=== PATIENT | male | born 1950 | race African-American/Black ===

== ENCOUNTER 2016-06-27 13:00 | Emergency (ER) | payer MEDICAID, MEDICARE ==
[2016-06-27 13:50] LABS: VENOUS BLOOD BASE EXCESS 2.1 mmol/L; VENOUS BLOOD HCO3 26.3 mmol/L (20-32); VENOUS BLOOD PCO2 39.8 mmHg (35-63); VENOUS BLOOD PH 7.44 (7.30-7.42)
[2016-06-27 13:56] LABS: APPEARANCE,URINE CLEAR; BILIRUBIN,URINE NEGATIVE (NEGATIVE); GLUCOSE, URINE NEGATIVE (NEGATIVE); KETONES,URINE NEGATIVE (NEGATIVE); LEUKOCYTE ESTERASE,URINE NEGATIVE (NEGATIVE); NITRITE,URINE NEGATIVE (NEGATIVE); PROTEIN,URINE 30 mg/dL (NEGATIVE); URINE SPECIFIC GRAVITY 1.016; UROBILINOGEN,URINE NEGATIVE mg/dL (<2.0)
[2016-06-27 14:02] LABS: ABSOLUTE LYMPHOCYTES (AUTO) 1.2 10^3/uL (0.5-4.7); ABSOLUTE MONOCYTES (AUTO) 0.5 10^3/uL (0.1-1.4); ABSOLUTE NEUT (AUTO) 2.5 10^3/uL (1.7-8.2); BASOPHILS % (AUTO) 0.5 % (0-2); EOSINOPHILS % (AUTO) 0.8 % (0-6); HEMATOCRIT 48.3 % (37.9-51.0); HEMOGLOBIN 16.5 g/dL (13.5-17.0); HGB HCT DIFFERENCE 1.2; LYMPHOCYTES % (AUTO) 28.2 % (13-45); MEAN CORPUSCULAR HEMOGLOBIN 29.6 pg (27.0-33.4); MEAN CORPUSCULAR HGB CONC 34.1 g/dL (32.0-36.0); MEAN CORPUSCULAR VOLUME 87 fl (80-97); MONOCYTES % (AUTO) 12.2 % (3-13); RED BLOOD COUNT 5.57 10^6/uL (4.35-5.55); RED CELL DISTRIBUTION WIDTH 14.5 % (11.5-14.0); SEGMENTED NEUTROPHILS % (AUTO) 58.3 % (42-78); WHITE BLOOD COUNT 4.3 10^3/uL (4.0-10.5)
[2016-06-27 14:05] LABS: ALANINE AMINOTRANSFERASE 22 U/L (21-72); ALBUMIN 4.4 g/dL (3.5-5.0); ALKALINE PHOSPHATASE 51 U/L (38-126); ANION GAP 13 (5-19); ASPARTATE AMINO TRANSFERASE 20 U/L (17-59); BILIRUBIN,DIRECT 0.3 mg/dL (0.0-0.4); BILIRUBIN,TOTAL 0.9 mg/dL (0.2-1.3); BLOOD UREA NITROGEN 13 mg/dL (7-20); CALCIUM 10.1 mg/dL (8.4-10.2); CARBON DIOXIDE 27 mmol/L (22-30); CHLORIDE 102 mmol/L (98-107); CREATINE KINASE 366 U/L (55-170); CREATININE RESULT 1.59 mg/dL (0.52-1.25); GLUCOSE 101 mg/dL (75-110); LIPASE 90.3 U/L (23-300); MAGNESIUM 1.6 mg/dL (1.6-2.3); POTASSIUM 3.4 mmol/L (3.6-5.0); SODIUM 141.7 mmol/L (137-145); TOTAL PROTEIN 7.6 g/dL (6.3-8.2)
--- NOTE | 2016-06-27 14:06 | ER Document Report ---
ED Respiratory Problem - General Mode of Arrival: Ambulatory Information source: Patient - HPI Patient complains to provider of: Cough, Short of breath Onset: Other - last night Context: Smoker, Other - see notes above Cough: Productive Sputum color: White Associated symptoms: Other - see notes above <JAMES BAKER - Last Filed: 06/27/16 14:00> <ANGEL RUSSELL - Last Filed: 06/27/16 18:05> - General Chief Complaint: Shortness Of Breath Stated Complaint: SHORTNESS OF BREATH Time Seen by Provider: 06/27/16 13:43 Notes: 66 year old male with history of hypertension and arthritis presents to the ED complaining of shortness of breath with exertion that started last night. Patient also complains of a productive cough bringing up white sputum. Patient was on blood pressure medication, but states that he is not taking any medication at this time. Patient [facility] to the [facility]. (JAMES BAKER) This 66-year-old male patient complains of shortness of breath for 2 days with a white productive cough. His pulse ox is oh 100% on room air and he does not appear tachypneic. He does smoke about a pack of cigarettes on a daily basis. His blood pressure is elevated at 199/142, he has not taken his blood pressure medication in quite some time. He does not know the name of the medication he has been on in the past. There is no chest pain. (ANGEL RUSSELL) - Related Data Allergies/Adverse Reactions: No Known Allergies Allergy (Verified 06/27/16 13:10) Past Medical History - General Information source: Patient - Social History Smoking Status: Current Every Day Smoker Family History: Reviewed & Not Pertinent - Past Medical History Cardiac Medical History: Reports: Hx Hypertension Neurological Medical History: Reports: Hx Migraine Renal/ Medical History: Denies: Hx Peritoneal Dialysis Musculoskeltal Medical History: Reports Hx Arthritis - Immunizations Immunizations up to date: Yes Hx Diphtheria, Pertussis, Tetanus Vaccination: Yes Hx Pneumococcal Vaccination: 02/14/11 <JAMES BAKER - Last Filed: 06/27/16 14:00> Review of Systems - Review of Systems Constitutional: No symptoms reported EENT: No symptoms reported Cardiovascular: No symptoms reported Respiratory: See HPI, Cough, Short of breath, Sputum - white Gastrointestinal: No symptoms reported Genitourinary: No symptoms reported Male Genitourinary: No symptoms reported Musculoskeletal: No symptoms reported Skin: No symptoms reported Hematologic/Lymphatic: No symptoms reported Neurological/Psychological: No symptoms reported -: Yes All other systems reviewed and negative <JAMES BAKER - Last Filed: 06/27/16 14:00> Physical Exam - General General appearance: Alert In distress: None - HEENT Head: Normocephalic, Atraumatic Eyes: No: Normal - left eye enucleation Pupils: PERRL - Respiratory Respiratory status: No respiratory distress Breath sounds: Normal - Cardiovascular Rhythm: Regular Heart sounds: Normal auscultation - Abdominal Inspection: Normal - Back Back: Normal - Extremities General upper extremity: Normal ROM. No: Normal inspection - old degenerative arthritic changes to the bilateral thumbs particularly at the MCP joints General lower extremity: Normal inspection, Normal ROM - Neurological Neuro grossly intact: Yes - Psychological Associated symptoms: Normal affect, Normal mood - Skin Skin Temperature: Warm Skin Moisture: Dry Skin Color: Normal <JAMES BAKER - Last Filed: 06/27/16 14:00> Course - Laboratory Result Diagrams: 06/27/16 13:35 06/27/16 13:35 <JAMES BAKER - Last Filed: 06/27/16 14:00> - Laboratory Result Diagrams: 06/27/16 13:35 06/27/16 13:35 <ANGEL RUSSELL - Last Filed: 06/27/16 18:05> - Vital Signs Vital signs: Temp Pulse Resp BP Pulse Ox 98.2 F 111 H 30 H 136/85 H 96 06/27/16 13:01 06/27/16 13:01 06/27/16 17:45 06/27/16 17:45 06/27/16 17:45 - Laboratory Laboratory results interpreted by me: 06/27/16 06/27/16 06/27/16 13:35 13:35 13:35 RBC 5.57 H RDW 14.5 H Plt Count 98 L VBG pH Potassium 3.4 L Creatinine 1.59 H Est GFR ( Amer) 53 L Est GFR (Non-Af Amer) 44 L Creatine Kinase 366 H NT-Pro-B Natriuret Pep 2430 H Urine Protein Urine Blood 06/27/16 06/27/16 13:35 13:35 RBC RDW Plt Count VBG pH 7.44 H Potassium Creatinine Est GFR ( Amer) Est GFR (Non-Af Amer) Creatine Kinase NT-Pro-B Natriuret Pep Urine Protein 30 H Urine Blood SMALL H Discharge <JAMES BAKER - Last Filed: 06/27/16 14:00> <ANGEL RUSSELL - Last Filed: 06/27/16 18:05> - Discharge Clinical Impression: Bronchitis, Uncontrolled hypertension, Noncompliance with medications Condition: Stable Disposition: HOME, SELF-CARE Additional Instructions: Bronchitis: You have acute bronchitis. This disease is an infection or inflammation of the air passageways in your lungs. Symptoms usually include cough, low grade fever, shortness of breath, and wheezing. The cough usually persists for a couple of weeks. Most cases of bronchitis get better without antibiotics. We prescribe antibiotics when we believe bacteria are damaging your airways, or if there's high risk the bronchitis will worsen into pneumonia. Increase your fluid intake. A cool mist humidifier may make your lungs more comfortable. An expectorant (cough medicine that loosens phlegm) can help. If you smoke, STOP!!! Recovery from bronchitis can be somewhat slow, but you should see improvement within a day or two. Repeated episodes of bronchitis may result in lung damage -- for example, chronic bronchitis, recurrent pneumonias, or emphysema. Call the doctor if you develop increasing fever, shortness of breath, chest pain, bloody sputum, or otherwise worsen. If you have not improved at all after several days, contact the physician. High Blood Pressure, Requiring Treatment: Your blood pressure is high. This is called "hypertension." Today's reading was__199/142__ (normal is less than 140/90). Your history and exam suggest that this is not a temporary problem. You need treatment of your blood pressure. Hypertension: The patient has been informed that he has Hypertension based on a blood pressure reading in the emergency department. I recommend that the patient follow up with his [facility] doctor at the [facility] tomorrow for treatment of Hypertension. If left untreated, high blood pressure greatly increases your risk of heart attack and stroke. Please don't ignore this problem. If you have blood pressure medicine but aren't using it regularly, start taking it again. Some simple things you can do to help are: Get some aerobic exercise for at least 20 minutes on a daily basis. (See your doctor before beginning any new exercise program.) Eat a low-fat diet. Avoid salty foods and avoid adding salt to any of the foods you eat. Avoid diet pills, decongestants, "energizing " herbs, and other medicines that elevate blood pressure. There are many different medicines that treat blood pressure. If your medication causes unpleasant side effects, call your doctor. There are others you can try. Treating hypertension is a life-long investment in your health. FOLLOW UP WITH YOUR DOCTOR TOMORROW AT THE [facility] TO START BACK ON YOUR BLOOD PRESSURE MEDICATION. Scribe Attestation: 06/27/16 18:05 I personally performed the services described in the documentation, reviewed and edited the documentation which was dictated to the scribe in my presence, and it accurately records my words and actions. (ANGEL RUSSELL) Scribe Documentation - Scribe Written by Karen:: Karen Blackwell, 06/27/2016 1608 acting as scribe for :: Rhoda <JAMES BAKER - Last Filed: 06/27/16 14:00>
[2016-06-27 14:16] LABS: CREATINE KINASE MB 1.6 ng/mL (<4.55); TROPONIN I 0.018 ng/mL
[2016-06-27] MEDS ORDERED: METOPROLOL TARTRATE PF/INJ 5 MG/5 ML SDV IV ONE (15:40)
[2016-06-27] MEDS ORDERED: HYDRALAZINE HCL INJ/PF 20 MG/1 ML SDV IV ONE (17:07)
[2016-06-27] MEDS ORDERED: METOPROLOL SUCCINATE 50 MG TAB.SR.24H PO ONE (18:01)
[2016-06-27 18:10] VITALS: BP 132/82
--- NOTE | 2016-06-27 22:46 | EKG REPORT ---
SEVERITY:- ABNORMAL ECG - SINUS RHYTHM LEFT ANTERIOR FASCICULAR BLOCK LVH WITH SECONDARY REPOLARIZATION ABNORMALITY ANTERIOR Q WAVES, POSSIBLY DUE TO LVH ST DEPRESSION, CONSIDER ISCHEMIA, ANT-LAT LDS : Confirmed by: Kurt Chacon 27-Jun-2016 22:45:51
== END 2016-06-27 18:46 | disposition home or self-care (01) ==
LOC: ER 13:00
DX: J40 Bronchitis, not specified as acute or chronic (principal); R05 Cough; R06.02 Shortness of breath; I10 Essential (primary) hypertension; Z91.14 Patient's other noncompliance with medication regimen; F17.210 Nicotine dependence, cigarettes, uncomplicated
CPT/HCPCS: 93005; 99285; 96374; 96375; 36415; 82553; 82550; 83690; 83735; 85025; 80053; 81001; 84484; 82803; 83880; 71010; 93010; J0360; J3490; A9270

== ENCOUNTER 2017-01-23 16:36 | Inpatient (IN) | payer MEDICARE ==
[2017-01-23] MEDS ORDERED: METHYLPREDNISOLONE INJ 125 MG/2 ML SDV IV ONE (17:40)
[2017-01-23] MEDS ORDERED: IPRATROPIUM/ALBUTEROL 0.5-2.5 MG/3 ML AMPUL NEB ONE (17:40)
--- NOTE | 2017-01-23 17:46 | ER Document Report ---
ED General - General Chief Complaint: Chest Pain Stated Complaint: CHEST PAIN Time Seen by Provider: 01/23/17 17:32 Information source: Patient, Relative TRAVEL OUTSIDE OF THE [place] IN LAST 30 DAYS: No - HPI Notes: 66-year-old male with history of tobacco abuse, chronic headaches, high blood pressure presents with a couple of weeks of dyspnea particularly with exertion. Family reports this is been going on since after [place] and is worse with exertion with notable wheezing. He does have a history of hypertension but his insurance has lapsed and he has not been taking medications for this. He has had some sporadic nonspecific chest discomfort as well. He is not able to describe for me but just states that it hurts on occasion but not a specific location. He has had some cough but no purulent sputum production and no fever. He does continue to smoke. - Related Data Allergies/Adverse Reactions: No Known Allergies Allergy (Verified 01/23/17 16:36) Past Medical History - Social History Smoking Status: Current Every Day Smoker Chew tobacco use (# tins/day): No Frequency of alcohol use: None Drug Abuse: None Family History: Reviewed & Not Pertinent Patient has suicidal ideation: No Patient has homicidal ideation: No - Past Medical History Cardiac Medical History: Reports: Hx Hypertension Neurological Medical History: Reports: Hx Migraine Renal/ Medical History: Denies: Hx Peritoneal Dialysis Musculoskeltal Medical History: Reports Hx Arthritis - Immunizations Immunizations up to date: Yes Hx Diphtheria, Pertussis, Tetanus Vaccination: Yes Hx Pneumococcal Vaccination: 02/14/11 Review of Systems - Review of Systems -: Yes All other systems reviewed and negative Physical Exam - Vital signs Vitals: Temp Pulse Resp BP Pulse Ox 97.5 F 56 L 44 H 144/108 H 85 L 01/23/17 16:54 01/23/17 16:54 01/23/17 16:54 01/23/17 16:54 01/23/17 16:54 Notes: Pulse was listed at 56 but upon my evaluation his pulse rate is 98 with some PVCs noted on the monitor. Oxygen saturation is 92% which is different than the vitals listed. He is tachypneic with a respiratory rate of 26 - Notes Notes: Physical Exam: GENERAL: VS as per nursing doc. nontoxic-appearing, well-nourished and tachypneic. HEAD: Atraumatic, normocephalic. EYES: Right pupil is reactive. He has a prosthetic left eye with mild dry crusting on the eyelashes noted. No purulent discharge sclera anicteric, no conjunctival injection. ENT: Nares patent, oropharynx clear without exudates. Moist mucous membranes. + JVD NECK: Normal range of motion, supple without lymphadenopathy. No JVD. No Carotid Bruits. LUNGS: Tachypneic, prolonged expiratory phase with predominantly expiratory wheezing. This sounds decreased slightly bilaterally with some fine basilar crackles. HEART: Tachycardic with extrasystoles noted. No murmur. Equal peripheral pulses. ABDOMEN: Soft, non-tender. EXTREMITIES: Normal range of motion. No calf tenderness. Negative Homans. No edema. NEUROLOGICAL: Normal speech. Normal sensory and motor exams. No gross cerebellar abnormalities. Hard of hearing, verified by family. PSYCH: Normal mood, normal affect. SKIN: Warm, dry, no cyanosis, no splinter hemorrhages. Cap refill < 2 sec. Course - Re-evaluation Re-evalutation: 01/23/17 20:17 Clinically the patient has features of both COPD and CHF. X-ray consistent with his exam as well with rales. Mild improvement with the nebulizer. He does have some JVD as well as prolonged expiratory phase making this slightly more complex. His BNP has significantly increased from 2000's to 12,000's. Repeat troponin and ABG is pending then we will further evaluate for admission at that point. He is hungry asking for food which seems reasonable. 01/23/17 22:16 I have attempted to contact Dr. Rogers who is listed as the hospitalist for admission. We will attempt again shortly. Patient currently does not have a PCP. He did not respond very well to the small dose of MATY inhibitor. He responded much better to labetalol 20 mg IV with a blood pressure of 140/108. We will hold off on further treatment unless he continues to increase again. His wheezing is better overall. He appears more comfortable and less tachypneic. He has been given Lasix. - Vital Signs Vital signs: Temp Pulse Resp BP Pulse Ox 97.5 F 70 21 H 148/108 H 94 01/23/17 21:52 01/23/17 22:14 01/23/17 22:14 01/23/17 22:14 01/23/17 22:14 - Laboratory Result Diagrams: 01/23/17 17:46 01/23/17 17:46 Laboratory results interpreted by me: 01/23/17 01/23/17 01/23/17 17:46 17:46 17:46 RDW 15.7 H Plt Count 135 L Carbonic Acid ABG pCO2 ABG pO2 ABG O2 Saturation Creatinine 1.53 H Est GFR ( Amer) 55 L Est GFR (Non-Af Amer) 46 L Glucose 121 H Calcium 10.3 H NT-Pro-B Natriuret Pep 55801 H Urine Protein Urine Blood Urine Urobilinogen 01/23/17 01/23/17 20:15 20:51 RDW Plt Count Carbonic Acid 1.04 L ABG pCO2 34.5 L ABG pO2 55.5 L ABG O2 Saturation 89.8 L Creatinine Est GFR ( Amer) Est GFR (Non-Af Amer) Glucose Calcium NT-Pro-B Natriuret Pep Urine Protein 100 H Urine Blood MODERATE H Urine Urobilinogen 2.0 H - Diagnostic Test Radiology reviewed: Image reviewed - CHF with pleural effusions - EKG Interpretation by Hi EKG shows normal: Sinus rhythm - Sinus tachycardia with multiple PVCs that appear unifocal. Artifact does limit some the interpretation. LVH with repolarization abnormalities are noted. These appear consistent with EKG from June 27, 2016. The ST depression noted in V3 through V6 appear consistent with prior - Consults Dr. Rogers Reason for consultation: 01/23/17 22:37 Consulted for admission. He will admit to [facility]. Discharge - Discharge Clinical Impression: CHF (congestive heart failure), Hypertensive emergency, Bronchospasm Condition: Fair Disposition: ADMITTED INPATIENT Admitting Provider: Dr. Rogers Unit Admitted: [facility]
[2017-01-23 18:07] LABS: ABSOLUTE MONOCYTES (AUTO) 0.5 10^3/uL (0.1-1.4); BASOPHILS % (AUTO) 0.5 % (0-2); EOSINOPHILS % (AUTO) 0.2 % (0-6); HEMATOCRIT 42.5 % (37.9-51.0); HEMOGLOBIN 14.3 g/dL (13.5-17.0); HGB HCT DIFFERENCE 0.4; LYMPHOCYTES % (AUTO) 17.5 % (13-45); MEAN CORPUSCULAR HEMOGLOBIN 28.7 pg (27.0-33.4); MEAN CORPUSCULAR HGB CONC 33.7 g/dL (32.0-36.0); MEAN CORPUSCULAR VOLUME 85 fl (80-97); MONOCYTES % (AUTO) 8.9 % (3-13); RED BLOOD COUNT 4.99 10^6/uL (4.35-5.55); RED CELL DISTRIBUTION WIDTH 15.7 % (11.5-14.0); SEGMENTED NEUTROPHILS % (AUTO) 72.9 % (42-78); WHITE BLOOD COUNT 5.6 10^3/uL (4.0-10.5)
[2017-01-23 18:23] LABS: ALANINE AMINOTRANSFERASE 24 U/L (21-72); ALBUMIN 3.9 g/dL (3.5-5.0); ALKALINE PHOSPHATASE 50 U/L (38-126); ANION GAP 12 (5-19); ASPARTATE AMINO TRANSFERASE 20 U/L (17-59); BILIRUBIN,DIRECT 0.4 mg/dL (0.0-0.4); BILIRUBIN,TOTAL 1.1 mg/dL (0.2-1.3); BLOOD UREA NITROGEN 14 mg/dL (7-20); CALCIUM 10.3 mg/dL (8.4-10.2); CARBON DIOXIDE 25 mmol/L (22-30); CHLORIDE 106 mmol/L (98-107); CREATININE RESULT 1.53 mg/dL (0.52-1.25); GLUCOSE 121 mg/dL (75-110); POTASSIUM 3.6 mmol/L (3.6-5.0); SODIUM 143.2 mmol/L (137-145)
[2017-01-23 18:47] LABS: TROPONIN I 0.067 ng/mL
--- NOTE | 2017-01-23 19:07 | RADIOLOGY REPORT (SQ) ---
EXAM DESCRIPTION: CHEST PA/LAT COMPLETED DATE/TIME: 01/23/2017 6:46 pm REASON FOR STUDY: Dyspnea COMPARISON: 07/16/2012 EXAM PARAMETERS: NUMBER OF VIEWS: two views TECHNIQUE: Digital Frontal and Lateral radiographic views of the chest acquired. RADIATION DOSE: NA LIMITATIONS: none FINDINGS: LUNGS AND PLEURA: Mild Right pleural effusion. Increased interstitial thickening througho ut both lungs. No pneumothorax. No dense consolidation. MEDIASTINUM AND HILAR STRUCTURES: Stable contour. HEART AND VASCULAR STRUCTURES: Heart mildly enlarged size. Mild increased vascularity. BONES: No acute findings. HARDWARE: None in the chest. OTHER: No other significant finding. IMPRESSION: Mild Right pleural effusion and Increased interstitial thickening throughout both lungs, suggests pulmonary edema. TECHNICAL DOCUMENTATION: JOB ID: [id number] [id number] [email or web address]- All Rights Reserved
[2017-01-23] MEDS ORDERED: ENALAPRILAT DIHYDRATE INJ/PF 1.25 MG/1 ML SDV IV ONE (20:19)
[2017-01-23] MEDS ORDERED: FUROSEMIDE INJ/PF 20 MG/2 ML SDV IV ONE ×4 (20:22→23:30)
[2017-01-23 20:45] LABS: APPEARANCE,URINE SLIGHTLY-CLOUDY; BILIRUBIN,URINE NEGATIVE (NEGATIVE); GLUCOSE, URINE NEGATIVE (NEGATIVE); KETONES,URINE NEGATIVE (NEGATIVE); LEUKOCYTE ESTERASE,URINE NEGATIVE (NEGATIVE); NITRITE,URINE NEGATIVE (NEGATIVE); PROTEIN,URINE 100 mg/dL (NEGATIVE); URINE SPECIFIC GRAVITY 1.025
[2017-01-23 21:06] LABS: ARTERIAL BLOOD BASE EXCESS -1.6 mmol/L; ARTERIAL BLOOD O2 SATURATION 89.8 % (94-98)
[2017-01-23] MEDS ORDERED: LABETALOL HCL INJ 20 MG/4 ML DISP.SYRIN IV ONE (21:47)
[2017-01-23] MEDS ORDERED: HYDRALAZINE HCL INJ/PF 20 MG/1 ML SDV IV ONE (22:11)
[2017-01-23] MEDS ORDERED: ACETAMINOPHEN 325 MG TABLET PO PRN (22:32)
[2017-01-23] MEDS ORDERED: MAG HYDROX/AL HYDROX/SIMETH SUSP 30 ML UDCUP PO PRN (22:32)
--- NOTE | 2017-01-23 22:43 | EKG REPORT ---
SEVERITY:- ABNORMAL ECG - SINUS TACHYCARDIA FREQUENT APCs MULTIPLE VENTRICULAR PREMATURE COMPLEXES PROBABLE LEFT ATRIAL ABNORMALITY LVH WITH SECONDARY REPOLARIZATION ABNORMALITY VS ISCHEMIA ST DEPRESSION, CONSIDER ISCHEMIA, ANT-LAT LDS BORDERLINE PROLONGED QT INTERVAL : Confirmed by: Kurt Chacon 23-Jan-2017 22:43:10
[2017-01-23] MEDS ORDERED: NITROGLYCERIN 5 MG (0.2 MG/HR) PATCH.TD24 TD ONE ×2 (22:45→23:30)
[2017-01-24 00:41] LABS: CREATINE KINASE MB 3.26 ng/mL (<4.55); TROPONIN I 0.055 ng/mL
[2017-01-24 01:58] LABS: URINE BARBITURATES SCREEN NEGATIVE; URINE METHADONE SCREEN NEGATIVE; URINE OPIATES LOW NEGATIVE; URINE PHENCYCLIDINE SCREEN NEGATIVE
[2017-01-24] MEDS ORDERED: INFLUENZA ADLT QUAD (36MOS+) 2017-18 VAC 0.5 ML SYR IM PRN (04:19)
[2017-01-24] MEDS: HEPARIN SOD (PORCINE) 5,000 UNIT/ML 1 ML SYRINGE SUBCUT SCH ×3 (05:22→21:42)
[2017-01-24 07:23] LABS: ABSOLUTE LYMPHOCYTES (AUTO) 0.6 10^3/uL (0.5-4.7); ABSOLUTE MONOCYTES (AUTO) 0.2 10^3/uL (0.1-1.4); ABSOLUTE NEUT (AUTO) 3.3 10^3/uL (1.7-8.2); BASOPHILS % (AUTO) 0.3 % (0-2); HEMATOCRIT 43.8 % (37.9-51.0); HEMOGLOBIN 15.2 g/dL (13.5-17.0); HGB HCT DIFFERENCE 1.8; LYMPHOCYTES % (AUTO) 14.2 % (13-45); MEAN CORPUSCULAR HEMOGLOBIN 29.3 pg (27.0-33.4); MEAN CORPUSCULAR HGB CONC 34.6 g/dL (32.0-36.0); MEAN CORPUSCULAR VOLUME 85 fl (80-97); MONOCYTES % (AUTO) 3.9 % (3-13); RED BLOOD COUNT 5.19 10^6/uL (4.35-5.55); RED CELL DISTRIBUTION WIDTH 16.1 % (11.5-14.0); SEGMENTED NEUTROPHILS % (AUTO) 81.6 % (42-78); WHITE BLOOD COUNT 4.1 10^3/uL (4.0-10.5)
--- NOTE | 2017-01-24 07:28 | PDOC H&P ---
History of Present Illness Admission Date/PCP: 01/23/17 22:55 Patient complains of: Shortness of breath History of Present Illness: ELVIS FELIZ is a 66 year old male with a past medical history of difficulty hearing, chronic headache, hypertension, COPD with tobacco dependence , who presents with shortness of breath and chest tightness. Patient has been without medications for several weeks secondary to financial barriers. Over the last week he has had increasing shortness of breath with exertion, orthopnea and over the last 24 hours chest tightness prompting evaluation in the emergency room where he is found to have systolic blood pressure in the 180s , tachypnea, hypoxia, large pleural effusions and cardiomegaly. He receives Lasix, albuterol and Atrovent and referred to the hospitalist for admission. He is currently pain-free and lying flat. Past Medical History Cardiac Medical History: Reports: Hypertension Pulmonary Medical History: Reports: Bronchitis, Chronic Obstructive Pulmonary Disease (COPD) Neurological Medical History: Reports: Migraine Musculoskeltal Medical History: Reports: Arthritis Psychiatric Medical History: Reports: Tobacco Dependency Social History Smoking Status: Current Some Day Smoker Cigarettes Packs Per Day: 1 Number of Years Smokin Frequency of Alcohol Use: Occasional - Advance Directive Resuscitation Status: Full Code Family History Family History: COPD, Hypertension Parental Family History Reviewed: Yes Children Family History Reviewed: Yes Sibling(s) Family History Reviewed.: Yes Medication/Allergy Allergies/Adverse Reactions: No Known Allergies Allergy (Verified 01/23/17 16:36) Review of Systems Constitutional: PRESENT: as per HPI, fatigue, weight gain Eyes: ABSENT: visual disturbances Ears: ABSENT: hearing changes Cardiovascular: PRESENT: chest pain, dyspnea on exertion, orthropnea. ABSENT: edema, palpitations Respiratory: PRESENT: as per HPI, cough, dyspnea. ABSENT: hemoptysis Gastrointestinal: ABSENT: abdominal pain, constipation, diarrhea, hematemesis, hematochezia, nausea, vomiting Genitourinary: ABSENT: dysuria, hematuria Musculoskeletal: ABSENT: joint swelling Integumentary: ABSENT: rash, wounds Neurological: ABSENT: abnormal gait, abnormal speech, confusion, dizziness, focal weakness, syncope Psychiatric: ABSENT: anxiety, depression, homidical ideation, suicidal ideation Endocrine: ABSENT: cold intolerance, heat intolerance, polydipsia, polyuria Hematologic/Lymphatic: ABSENT: easy bleeding, easy bruising Physical Exam Vital Signs: Temp Pulse Resp BP Pulse Ox 97.5 F 87 27 H 148/109 H 94 01/24/17 03:47 01/24/17 03:47 01/24/17 04:45 01/24/17 03:47 01/24/17 04:45 Intake & Output 01/22/17 01/23/17 01/24/17 11:59 11:59 11:59 Intake Total 0 Output Total 250 Balance -250 Weight 67 kg General appearance: PRESENT: cooperative, disheveled, mild distress, thin Head exam: PRESENT: atraumatic, normocephalic Eye exam: PRESENT: conjunctiva pink, EOMI, PERRLA, other - Prosthetic left eye. ABSENT: scleral icterus Ear exam: PRESENT: normal external ear exam Mouth exam: PRESENT: moist, tongue midline Neck exam: PRESENT: JVD. ABSENT: carotid bruit, lymphadenopathy, thyromegaly Respiratory exam: PRESENT: accessory muscle use, crackles, decreased breath sounds, prolonged expiratory phas, rales, retraction, symmetrical, tachypnea. ABSENT: rhonchi, stridor, wheezes Cardiovascular exam: PRESENT: gallop, +S1, +S2, systolic murmur, tachycardia Pulses: PRESENT: normal dorsalis pedis pul Vascular exam: PRESENT: normal capillary refill GI/Abdominal exam: PRESENT: normal bowel sounds, soft. ABSENT: distended, guarding, mass, organolmegaly, rebound, tenderness Rectal exam: PRESENT: deferred Extremities exam: PRESENT: full ROM. ABSENT: calf tenderness, clubbing, pedal edema Neurological exam: PRESENT: alert, awake, oriented to person, oriented to place , oriented to time, oriented to situation, CN II-XII grossly intact. ABSENT: motor sensory deficit Psychiatric exam: PRESENT: appropriate affect, normal mood. ABSENT: homicidal ideation, suicidal ideation Skin exam: PRESENT: dry, intact, warm. ABSENT: cyanosis, rash Results Laboratory Results: 01/23/17 01/23/17 23:58 23:58 Creatine Kinase 288 H CK-MB (CK-2) 3.26 Troponin I 0.055 Impressions: Chest X-Ray 01/23/17 17:40 IMPRESSION: Mild Right pleural effusion and Increased interstitial thickening throughout both lungs, suggests pulmonary edema. Assessment & Plan - Diagnosis (1) Hypertensive emergency Is this a current diagnosis for this admission?: Yes Plan: Secondary to noncompliance, IV hydralazine, Lasix and MATY inhibitor (2) CHF (congestive heart failure) Is this a current diagnosis for this admission?: Yes Plan: Secondary to #1 complicated by noncompliance and pleural effusion. 2D echo ordered, blood pressure and heart rate control and diuresis. (3) COPD exacerbation Is this a current diagnosis for this admission?: Yes Plan: Complicated by #1 and acute bronchitis. Flutter valve, incentive spirometry, supplemental oxygen albuterol and Atrovent (4) Tobacco dependence Is this a current diagnosis for this admission?: Yes Plan: Tobacco Dependence patient received tobacco cessation counseling and offered nicotine replacement options (5) Acute bronchitis Is this a current diagnosis for this admission?: Yes Plan: Empiric antibiotics, flutter valve, supplemental oxygen - Time Time Spent: 50 to 70 Minutes - Inpatient Certification Medical Necessity: Need Close Monitoring Due to Risk of Patient Decompensation
[2017-01-24 07:51] LABS: CREATINE KINASE MB 3.44 ng/mL (<4.55); TROPONIN I 0.06 ng/mL
[2017-01-24 08:04] LABS: ANION GAP 18 (5-19); BLOOD UREA NITROGEN 17 mg/dL (7-20); CALCIUM 10.2 mg/dL (8.4-10.2); CARBON DIOXIDE 25 mmol/L (22-30); CHLORIDE 104 mmol/L (98-107); CREATINE KINASE 330 U/L (55-170); CREATININE RESULT 1.82 mg/dL (0.52-1.25); GLUCOSE 110 mg/dL (75-110); POTASSIUM 3.9 mmol/L (3.6-5.0); SODIUM 146.5 mmol/L (137-145)
[2017-01-24] MEDS ORDERED: MAG HYDROX/AL HYDROX/SIMETH SUSP 30 ML UDCUP PO PRN (09:00)
[2017-01-24] MEDS: NITROGLYCERIN 5 MG (0.2 MG/HR) PATCH.TD24 TD SCH (09:59)
[2017-01-24] MEDS: ASPIRIN 81 MG TABLET, ENT COATED PO SCH (09:59)
[2017-01-24] MEDS: DOCUSATE SODIUM 100 MG CAPSULE PO SCH (09:59)
[2017-01-24] MEDS: FUROSEMIDE INJ/PF 20 MG/2 ML SDV IV SCH ×2 (10:00→21:43)
[2017-01-24] MEDS: ENALAPRILAT DIHYDRATE INJ/PF 1.25 MG/1 ML SDV IV PRN (11:58)
[2017-01-24 12:55] LABS: CREATINE KINASE MB 3.71 ng/mL (<4.55); TROPONIN I 0.051 ng/mL
--- NOTE | 2017-01-24 13:59 | PDOC PROGRESS REPORT ---
Subjective Progress Note for:: 01/24/17 Subjective:: Patient reports that his breathing is doing better. Reason For Visit: HTN EMERGENCY COPD TOBACCO HEART FAILURE Physical Exam Vital Signs: Temp Pulse Resp BP Pulse Ox 98.2 F 117 H 18 140/92 H 97 01/24/17 11:51 01/24/17 11:51 01/24/17 11:51 01/24/17 13:37 01/24/17 11:51 Intake & Output 01/23/17 01/24/17 01/25/17 06:59 06:59 06:59 Intake Total 0 452 Output Total 250 Balance -250 452 Weight 67 kg General appearance: PRESENT: no acute distress Eye exam: PRESENT: conjunctiva pink. ABSENT: scleral icterus Mouth exam: PRESENT: moist, tongue midline Neck exam: ABSENT: JVD Respiratory exam: PRESENT: clear to auscultation jameson. ABSENT: rales, rhonchi, wheezes Cardiovascular exam: PRESENT: RRR. ABSENT: diastolic murmur, rubs, systolic murmur GI/Abdominal exam: PRESENT: normal bowel sounds, soft. ABSENT: distended, guarding, mass, organolmegaly, rebound, tenderness Extremities exam: ABSENT: calf tenderness, clubbing, pedal edema Neurological exam: PRESENT: alert, awake, oriented to person, oriented to place , oriented to time, oriented to situation. ABSENT: CN II-XII grossly intact - Patient is hard of hearing., motor sensory deficit Psychiatric exam: PRESENT: appropriate affect Skin exam: PRESENT: dry, intact, warm. ABSENT: cyanosis, rash Results Laboratory Results: 01/24/17 07:04 01/24/17 07:04 01/24/17 01/24/17 07:04 07:04 WBC 4.1 RBC 5.19 Hgb 15.2 Hct 43.8 MCV 85 MCH 29.3 MCHC 34.6 RDW 16.1 H Plt Count 137 L Seg Neutrophils % 81.6 H Lymphocytes % 14.2 Monocytes % 3.9 Eosinophils % 0.0 Basophils % 0.3 Absolute Neutrophils 3.3 Absolute Lymphocytes 0.6 Absolute Monocytes 0.2 Absolute Eosinophils 0.0 Absolute Basophils 0.0 Sodium 146.5 H Potassium 3.9 Chloride 104 Carbon Dioxide 25 Anion Gap 18 BUN 17 Creatinine 1.82 H Est GFR ( Amer) 45 L Est GFR (Non-Af Amer) 37 L Glucose 110 Calcium 10.2 01/23/17 01/23/17 01/24/17 23:58 23:58 07:04 Creatine Kinase 288 H 330 H CK-MB (CK-2) 3.26 Troponin I 0.055 01/24/17 01/24/17 01/24/17 07:04 11:44 11:44 Creatine Kinase 334 H CK-MB (CK-2) 3.44 3.71 Troponin I 0.060 0.051 Impressions: Chest X-Ray 01/23/17 17:40 IMPRESSION: Mild Right pleural effusion and Increased interstitial thickening throughout both lungs, suggests pulmonary edema. Assessment & Plan - Diagnosis (1) Hypertensive emergency Is this a current diagnosis for this admission?: Yes Plan: Blood pressures have improved. He is feeling much better from a respiratory standpoint. (2) CHF (congestive heart failure) Is this a current diagnosis for this admission?: Yes Plan: Improving. Will continue the Lasix. Echocardiogram results are pending. (3) COPD exacerbation Is this a current diagnosis for this admission?: Yes (4) Tobacco dependence Is this a current diagnosis for this admission?: Yes - Time Time Spent with patient: 25-34 minutes - Inpatient Certification Medical Necessity: Need Close Monitoring Due to Risk of Patient Decompensation
--- NOTE | 2017-01-24 14:12 | Physician Advisory Note ---
Physician Advisor ProgressNote .: [facility] I have reviewed the medical record for this patient. Physician Advisor Statement: Nice documentation of Acute bronchitis w/COPD exac. Please consider documenting, if you agree: 1. "Acute Hypoxemic Respiratory Failure, evidenced by recurrent hypoxemia in the 80s with retractions/accesory muscle use/distress ..." (evidence has been nicely documented so far by H&P & ED dr notes) 2. "Acute CHF, suspect ___ type" (evidence has been nicely documented in H&P already: BOONE, orthopnea, cardiomegaly, pleural effusions, rales) 3. "Hypertensive emergency, causing " (s/s - acute CHF? CP? ...) 4. "COPD exacerbation, evidenced by cough increased in frequency & severity, sputum increase in volume, increased dyspnea" 5. "Acute hypernatremia, likely due to ____" Status: appropriately Inpatient status: 66yo Medicare pt w/COPD, HTN, tobacco dependence, with acute CHF + acute COPD exac/Ac bronchitis, with HTN-jeremy emergency & acute hypoxemic resp failure, has been tx'd x 1MN in hospital level of care already and remains tachypneic, recurrently hypoxemic & tachycardic. Needing up to 6L O2 this AM, & Bipap. Clearly will need a 2nd MN in hospital care. CK
[2017-01-25 04:43] LABS: ABSOLUTE LYMPHOCYTES (AUTO) 1.4 10^3/uL (0.5-4.7); ABSOLUTE MONOCYTES (AUTO) 0.6 10^3/uL (0.1-1.4); ABSOLUTE NEUT (AUTO) 3.7 10^3/uL (1.7-8.2); BASOPHILS % (AUTO) 0.7 % (0-2); EOSINOPHILS % (AUTO) 0.6 % (0-6); HEMATOCRIT 44.8 % (37.9-51.0); HEMOGLOBIN 15.4 g/dL (13.5-17.0); HGB HCT DIFFERENCE 1.4; LYMPHOCYTES % (AUTO) 24.7 % (13-45); MEAN CORPUSCULAR HEMOGLOBIN 29.3 pg (27.0-33.4); MEAN CORPUSCULAR HGB CONC 34.3 g/dL (32.0-36.0); MEAN CORPUSCULAR VOLUME 85 fl (80-97); MONOCYTES % (AUTO) 9.9 % (3-13); RED BLOOD COUNT 5.26 10^6/uL (4.35-5.55); RED CELL DISTRIBUTION WIDTH 15.7 % (11.5-14.0); SEGMENTED NEUTROPHILS % (AUTO) 64.1 % (42-78); WHITE BLOOD COUNT 5.8 10^3/uL (4.0-10.5)
[2017-01-25 05:01] LABS: ANION GAP 16 (5-19); BLOOD UREA NITROGEN 26 mg/dL (7-20); CALCIUM 9.6 mg/dL (8.4-10.2); CARBON DIOXIDE 26 mmol/L (22-30); CHLORIDE 102 mmol/L (98-107); CREATININE RESULT 1.75 mg/dL (0.52-1.25); GLUCOSE 88 mg/dL (75-110); POTASSIUM 3.5 mmol/L (3.6-5.0); SODIUM 143.7 mmol/L (137-145)
[2017-01-25] MEDS: HEPARIN SOD (PORCINE) 5,000 UNIT/ML 1 ML SYRINGE SUBCUT SCH ×3 (05:06→22:28)
[2017-01-25] MEDS: ASPIRIN 81 MG TABLET, ENT COATED PO SCH (09:32)
[2017-01-25] MEDS: DOCUSATE SODIUM 100 MG CAPSULE PO SCH (09:33)
[2017-01-25] MEDS: FUROSEMIDE INJ/PF 20 MG/2 ML SDV IV SCH ×2 (09:33→22:28)
[2017-01-25] MEDS: NITROGLYCERIN 5 MG (0.2 MG/HR) PATCH.TD24 TD SCH (09:33)
[2017-01-25] MEDS: ENALAPRILAT DIHYDRATE INJ/PF 1.25 MG/1 ML SDV IV PRN (15:55)
[2017-01-25] MEDS ORDERED: POTASSIUM CHLORIDE 10 MEQ TABLET.SA PO ONE (17:00)
--- NOTE | 2017-01-25 17:00 | PDOC PROGRESS REPORT ---
Subjective Progress Note for:: 01/25/17 Subjective:: This is a follow-up visit for hypertensive emergency and COPD exacerbation. Patient was seen today and states that he feels that his breathing is better. States it is usually not on any oxygen at home. He tells me that he lives with his son and does not really go anywhere. He usually just stays in his room and watches TV. He usually ambulates with a cane. Reason For Visit: HTN EMERGENCY COPD TOBACCO HEART FAILURE Physical Exam Vital Signs: Temp Pulse Resp BP Pulse Ox 97.8 F 85 16 150/110 H 98 01/25/17 15:40 01/25/17 15:40 01/25/17 16:05 01/25/17 16:00 01/25/17 16:05 Intake & Output 01/24/17 01/25/17 01/26/17 06:59 06:59 06:59 Intake Total 0 1272 Output Total 250 1425 Balance -250 -153 Weight 67 kg 66.2 kg GENERAL: This is a well-developed, thin frail-appearing -[place] male sitting on the side of his bed currently in no acute distress HEART: Regular rate and rhythm. No murmurs, rubs or gallops. LUNGS: Diminished at the bases he is resting comfortably on oxygen. Bilaterally with equal rise and fall of the chest. ABDOMEN: Soft, nontender, nondistended with normoactive bowel sounds EXTREMETIES: No clubbing, cyanosis or edema. 2+ peripheral pulses bilaterally. NEURO: [Awake, alert and oriented 3. With the exception of his auditory nerve bilaterally. The patient has great difficulty hearingAwake, alert and oriented 3. With the exception of his auditory nerve bilaterally. The patient has great difficulty hearing.] Results Laboratory Results: 01/25/17 04:18 01/25/17 04:18 01/25/17 01/25/17 04:18 04:18 WBC 5.8 RBC 5.26 Hgb 15.4 Hct 44.8 MCV 85 MCH 29.3 MCHC 34.3 RDW 15.7 H Plt Count 128 L Seg Neutrophils % 64.1 Lymphocytes % 24.7 Monocytes % 9.9 Eosinophils % 0.6 Basophils % 0.7 Absolute Neutrophils 3.7 Absolute Lymphocytes 1.4 Absolute Monocytes 0.6 Absolute Eosinophils 0.0 Absolute Basophils 0.0 Sodium 143.7 Potassium 3.5 L Chloride 102 Carbon Dioxide 26 Anion Gap 16 BUN 26 H Creatinine 1.75 H Est GFR ( Amer) 47 L Est GFR (Non-Af Amer) 39 L Glucose 88 Calcium 9.6 01/23/17 01/23/17 01/24/17 23:58 23:58 07:04 Creatine Kinase 288 H 330 H CK-MB (CK-2) 3.26 Troponin I 0.055 01/24/17 01/24/17 01/24/17 07:04 11:44 11:44 Creatine Kinase 334 H CK-MB (CK-2) 3.44 3.71 Troponin I 0.060 0.051 Impressions: Chest X-Ray 01/23/17 17:40 IMPRESSION: Mild Right pleural effusion and Increased interstitial thickening throughout both lungs, suggests pulmonary edema. Assessment & Plan - Diagnosis (1) Acute respiratory failure Qualifiers: Respiratory failure complication: hypoxia Qualified Code(s): J96.01 - Acute respiratory failure with hypoxia Is this a current diagnosis for this admission?: Yes Plan: Likely secondary to underlying heart failure and COPD exacerbation. The patient is not usually read he initially had an O2 sat as low as 85%. He was placed on BiPAP initially. BiPAP is currently off in the room and the patient is doing well. He states that he feels better. Continue nebulizer treatments. (2) Hypertensive emergency Is this a current diagnosis for this admission?: Yes Plan: Blood pressures are under better control. Continue current antihypertensives. Continue as needed enalaprilat. Caution with current kidney function. Begin Norvasc 5 mg. Discontinue nitroglycerin patch after today. (3) COPD exacerbation Is this a current diagnosis for this admission?: Yes Plan: Continue oxygen therapy as needed. Currently the patient has diminished breath sounds. I do not hear any blanca wheezing today. Will not start any steroids at this time. (4) Tobacco dependence Is this a current diagnosis for this admission?: Yes Plan: Smoking cessation is advised. (5) CHF (congestive heart failure) Is this a current diagnosis for this admission?: Yes Plan: Continue diuresis. Echocardiogram pending. I suspect this is likely systolic heart failure. This is based on lack of any lower extremity edema and presence of pulmonary edema. I suspect that his uncontrolled hypertension likely lead to heart failure. (6) Pleural effusion Is this a current diagnosis for this admission?: Yes Plan: Diuresis as above. (7) Acute on chronic kidney failure Qualifiers: Chronic kidney disease stage: stage 3 (moderate) Is this a current diagnosis for this admission?: Yes Plan: I suspect that the patient has some underlying chronic kidney disease at stage III. Patient's creatinine has gone from 1.5 up to 1.8 and now back down to 1.7. This is more than a change of 0.3 from the patient's admission baseline. This may be secondary to underlying diuresis. Continue to monitor. So long as his creatinine continues to decline we will continue with diuresis as planned. - Time Time Spent with patient: 15-24 minutes Within: within 48 hours - Inpatient Certification Medical Necessity: Need Close Monitoring Due to Risk of Patient Decompensation
--- NOTE | 2017-01-25 19:04 | XCELERA REPORT ---
[address] [address] Transthoracic Echocardiogram Report Name: ELVIS FELIZ Age: 66 yrs Gender: Male : 1950 Patient Status: Inpatient Patient Location: [address] [place] [address] Study Date: 01/24/2017 01:53 PM Height: 71 in Weight: 147 lb BSA: 1.9 m2 Procedure: A two-dimensional transthoracic echocardiogram with color flow and Doppler was performed. The study was technically limited with all images being suboptimal in quality. Images were not obtained from all of the standard acoustic windows due to the limited scope of the study. Reason For Study: chf c pleural eff Ordering Physician: YESY HOLMAN Performed By: Kayleen Banks Interpretation Summary The left ventricle is normal in size. There is mild concentric left ventricular hypertrophy. LV EF is 35% Left ventricular systolic function is moderate to severely reduced. Doppler measurements suggest normal left ventricular diastolic function There is moderate to severe global hypokinesis of the left ventricle. There is no thrombus. Probably mildly enlarged.Not well seen, cannot assess RV systolic function. The left atrial size is normal. There is no evidence of mitral valve prolapse. There is no mitral valve stenosis. There is no mitral regurgitation noted. There is no aortic valve stenosis There is no LVOT obstruction. There is a mild amount of aortic regurgitation There is no tricuspid stenosis. No tricuspid regurgitation. Cannot assess RVSP due to insufficient TR jet. There is no pulmonic valvular stenosis. There is a trace amount of pulmonic regurgitation There is no pericardial effusion. MMode/2D Measurements & Calculations RVDd: 4.4 cm LVIDd: 5.5 cm FS: 18.6 % Ao root diam: IVSd: 1.3 cm LVIDs: 4.5 cm EDV(Teich): 3.5 cm LVPWd: 1.3 cm 146.2 ml Ao root area: ESV(Teich): 90.7 ml 9.5 cm2 EF(Teich): 38.0 % LA dimension: 3.8 cm LVLd ap4: 8.9 cm SV(MOD-sp4): EDV(MOD-sp4): 54.0 ml 144.0 ml LVLs ap4: 8.1 cm ESV(MOD-sp4): 90.0 ml EF(MOD-sp4): 37.5 % Doppler Measurements & Calculations MV E max franco: MV P1/2t max franco: Ao V2 max: AI max franco: 134.3 cm/sec 134.8 cm/sec 121.6 cm/sec 376.4 cm/sec MV A max franco: MV P1/2t: 88.6 msec Ao max PG: AI max P.4 cm/sec MVA(P1/2t): 2.5 cm2 5.9 mmHg 56.7 mmHg MV E/A: 1.6 MV dec slope: AI dec slope: 445.3 cm/sec2 144.6 cm/sec2 AI P1/2t: 762.4 msec LV V1 max PG: PA V2 max: PI end-d franco: 2.3 mmHg 71.1 cm/sec 169.7 cm/sec LV V1 max: PA max P.0 mmHg 75.5 cm/sec Left Ventricle The left ventricle is normal in size. There is mild concentric left ventricular hypertrophy. LV EF is 35%. Left ventricular systolic function is moderate to severely reduced. Doppler measurements suggest normal left ventricular diastolic function. There is moderate to severe global hypokinesis of the left ventricle. There is no thrombus. Right Ventricle Probably mildly enlarged.Not well seen, cannot assess RV systolic function. Atria The right atrium is normal. The left atrial size is normal. Mitral Valve There is no evidence of mitral valve prolapse. There is no vegetation seen on the mitral valve. There is no mitral valve stenosis. There is no mitral regurgitation noted. Aortic Valve There is no aortic valvular vegetation. There is no aortic valve stenosis. There is no LVOT obstruction. There is a mild amount of aortic regurgitation. Tricuspid Valve There is no tricuspid stenosis. No tricuspid regurgitation. Cannot assess RVSP due to insufficient TR jet. Pulmonic Valve There is no pulmonic valvular stenosis. There is a trace amount of pulmonic regurgitation. Great Vessels The aortic root is normal size. Effusions There is no pericardial effusion. : YESY HOLMAN > Brittany Franco
[2017-01-26 05:07] LABS: ABSOLUTE EOSINOPHILS # (AUTO) 0.1 10^3/uL (0.0-0.6); ABSOLUTE LYMPHOCYTES (AUTO) 1.4 10^3/uL (0.5-4.7); ABSOLUTE MONOCYTES (AUTO) 0.6 10^3/uL (0.1-1.4); ABSOLUTE NEUT (AUTO) 1.7 10^3/uL (1.7-8.2); BASOPHILS % (AUTO) 0.8 % (0-2); HEMOGLOBIN 16.2 g/dL (13.5-17.0); HGB HCT DIFFERENCE 1.6; LYMPHOCYTES % (AUTO) 36.5 % (13-45); MEAN CORPUSCULAR HEMOGLOBIN 29.5 pg (27.0-33.4); MEAN CORPUSCULAR HGB CONC 34.5 g/dL (32.0-36.0); MEAN CORPUSCULAR VOLUME 86 fl (80-97); RED BLOOD COUNT 5.49 10^6/uL (4.35-5.55); RED CELL DISTRIBUTION WIDTH 15.9 % (11.5-14.0); SEGMENTED NEUTROPHILS % (AUTO) 44.7 % (42-78); WHITE BLOOD COUNT 3.7 10^3/uL (4.0-10.5)
[2017-01-26 05:26] LABS: ANION GAP 13 (5-19); BLOOD UREA NITROGEN 26 mg/dL (7-20); CARBON DIOXIDE 30 mmol/L (22-30); CHLORIDE 100 mmol/L (98-107); CREATININE RESULT 1.73 mg/dL (0.52-1.25); GLUCOSE 86 mg/dL (75-110); MAGNESIUM 1.8 mg/dL (1.6-2.3); POTASSIUM 3.8 mmol/L (3.6-5.0); SODIUM 142.8 mmol/L (137-145)
[2017-01-26] MEDS: HEPARIN SOD (PORCINE) 5,000 UNIT/ML 1 ML SYRINGE SUBCUT SCH ×2 (06:46→14:01)
[2017-01-26] MEDS ORDERED: AMLODIPINE BESYLATE 5 MG TABLET PO SCH (10:00)
[2017-01-26 11:29] VITALS: BP 147/92
[2017-01-26] MEDS: ASPIRIN 81 MG TABLET, ENT COATED PO SCH (11:47)
[2017-01-26] MEDS: DOCUSATE SODIUM 100 MG CAPSULE PO SCH (11:47)
[2017-01-26] MEDS: FUROSEMIDE INJ/PF 20 MG/2 ML SDV IV SCH (11:50)
[2017-01-26] MEDS: NITROGLYCERIN 5 MG (0.2 MG/HR) PATCH.TD24 TD SCH (11:51)
--- NOTE | 2017-01-26 14:44 | PDOC DISCHARGE SUMMARY ---
General - Admit/Disc Date/PCP Admission Date/Primary Care Provider: 01/23/17 22:55 Discharge Date: 01/26/17 - Discharge Diagnosis (1) Acute respiratory failure Is this a current diagnosis for this admission?: Yes Summary: Resolved. (2) Hypertensive emergency Is this a current diagnosis for this admission?: Yes (3) COPD exacerbation Is this a current diagnosis for this admission?: Yes (4) Tobacco dependence Is this a current diagnosis for this admission?: Yes (5) CHF (congestive heart failure) Is this a current diagnosis for this admission?: Yes (6) Pleural effusion Is this a current diagnosis for this admission?: Yes (7) Acute on chronic kidney failure Is this a current diagnosis for this admission?: Yes - Additional Information Resuscitation Status: Full Code Discharge Diet: Cardiac Discharge Activity: Activity As Tolerated, Balance Activity w/Rest, Weigh Daily Home Medications: Unobtainable [Unobtainable] 01/24/17 History of Present Illness History of Present Illness: ELVIS FELIZ is a 66 year old -[place] male who presented to the service in respiratory distress. Patient was treated for heart failure. Please see details of the admission as outlined below by the admitting physician. History of Present Illness Admission Date/PCP: 01/23/17 22:55 Patient complains of: Shortness of breath History of Present Illness: ELVIS FELIZ is a 66 year old male with a past medical history of difficulty hearing, chronic headache, hypertension, COPD with tobacco dependence , who presents with shortness of breath and chest tightness. Patient has been without medications for several weeks secondary to financial barriers. Over the last week he has had increasing shortness of breath with exertion, orthopnea and over the last 24 hours chest tightness prompting evaluation in the emergency room where he is found to have systolic blood pressure in the 180s , tachypnea, hypoxia, large pleural effusions and cardiomegaly. He receives Lasix, albuterol and Atrovent and referred to the hospitalist for admission. He is currently pain-free and lying flat. Hospital Course Hospital Course: The patient was admitted to the hospital and started on Lasix IV 20 mg every 12 hours. The patient was initially placed on bilevel Pap and then was able to be transitioned to nasal cannula oxygen. Oxygen was eventually weaned off and the patient was able to ambulate the halls without decrease in his oxygen saturation. The patient was seen by the physical therapist and was noted to be unsteady. Home health PT was recommended along with a front wheeled rolling walker. The patient's CHF exacerbation is felt to be precipitated by his hypertensive emergency. The patient was maintained on Norvasc and nitroglycerin patch initially. His blood pressures came down nicely. Patient diuresed well. Echocardiogram was done which showed 35% systolic ejection fraction and global hypokinesis. Beta-sudhakar was initiated at a low dose. The patient will need to follow-up with his primary care physician. Ultimately MATY inhibitor should be added as well if his renal function will allow. Physical Exam Vital Signs: Temp Pulse Resp BP Pulse Ox 97.5 F 87 16 147/92 H 94 01/26/17 10:58 01/26/17 10:58 01/26/17 10:58 01/26/17 10:58 01/26/17 10:58 Intake & Output 01/25/17 01/26/17 01/27/17 06:59 06:59 06:59 Intake Total 1272 1882 Output Total 1425 1175 Balance -153 707 Weight 66.2 kg 65 kg GENERAL: This is a well-developed, thin frail-appearing -[place] male resting in bed currently in no acute distress HEART: Regular rate and rhythm. No murmurs, rubs or gallops. LUNGS: Diminished at the bases bilaterally. He has equal rise and fall the chest. He is currently off of oxygen ABDOMEN: Soft, nontender, nondistended with normoactive bowel sounds EXTREMETIES: No clubbing, cyanosis or edema. 2+ peripheral pulses bilaterally. NEURO: Awake, alert and oriented 3. With the exception of his auditory nerve bilaterally. The patient has great difficulty hearing Results Laboratory Results: 01/26/17 04:33 01/26/17 04:33 01/26/17 01/26/17 04:33 04:33 WBC 3.7 L RBC 5.49 Hgb 16.2 Hct 47.0 MCV 86 MCH 29.5 MCHC 34.5 RDW 15.9 H Plt Count 142 L Seg Neutrophils % 44.7 Lymphocytes % 36.5 Monocytes % 15.0 H Eosinophils % 3.0 Basophils % 0.8 Absolute Neutrophils 1.7 Absolute Lymphocytes 1.4 Absolute Monocytes 0.6 Absolute Eosinophils 0.1 Absolute Basophils 0.0 Sodium 142.8 Potassium 3.8 Chloride 100 Carbon Dioxide 30 Anion Gap 13 BUN 26 H Creatinine 1.73 H Est GFR ( Amer) 48 L Est GFR (Non-Af Amer) 40 L Glucose 86 Calcium 10.0 Magnesium 1.8 01/23/17 01/23/17 01/24/17 23:58 23:58 07:04 Creatine Kinase 288 H 330 H CK-MB (CK-2) 3.26 Troponin I 0.055 01/24/17 01/24/17 01/24/17 07:04 11:44 11:44 Creatine Kinase 334 H CK-MB (CK-2) 3.44 3.71 Troponin I 0.060 0.051 Impressions: Chest X-Ray 01/23/17 17:40 IMPRESSION: Mild Right pleural effusion and Increased interstitial thickening throughout both lungs, suggests pulmonary edema. Qualifiers PATEINT BEING DISCHARGED WITH ANY OF THE FOLLOWING DIAGNOSIS?: No Plan Time Spent: Less than 30 Minutes
== END 2017-01-26 16:20 | disposition home health service (06) | DRG 304 ==
LOC: ER 16:36 → EH 22:55 → 3W 01-24 03:36
PROVIDERS: ADMIT Internal Medicine; ATTEND Internal Medicine
PROC: 5A09457 Assistance with Respiratory Ventilation, 24-96 Consecutive Hours, Continuous Positive Airway Pressure (ICD-10-PCS; principal; 2017-01-24)
DX: I16.1 Hypertensive emergency (principal); J96.01 Acute respiratory failure with hypoxia; J44.1 Chronic obstructive pulmonary disease with (acute) exacerbation; N17.9 Acute kidney failure, unspecified; J44.0 Chronic obstructive pulmonary disease with (acute) lower respiratory infection; I50.20 Unspecified systolic (congestive) heart failure; F17.210 Nicotine dependence, cigarettes, uncomplicated; I13.0 Hypertensive heart and chronic kidney disease with heart failure and stage 1 through stage 4 chronic kidney disease, or unspecified chronic kidney disease; M19.90 Unspecified osteoarthritis, unspecified site; N18.3 Chronic kidney disease, stage 3 (moderate); G43.909 Migraine, unspecified, not intractable, without status migrainosus; I49.3 Ventricular premature depolarization; J20.9 Acute bronchitis, unspecified; Z91.14 Patient's other noncompliance with medication regimen; Z59.9 Problem related to housing and economic circumstances, unspecified; Z83.6 Family history of other diseases of the respiratory system; Z82.49 Family history of ischemic heart disease and other diseases of the circulatory system
CPT/HCPCS: 36415; 71020; 80048; 80053; 80307; 81001; 82550; 82553; 82803; 83735; 83880; 84443; 84484; 85025; 93005; 93010; 93306; 94640; 94660; 96374; 96375; 99285; G8978-GP; G8979-GP; J1644; J1940; J2930; J3490; J7620

== ENCOUNTER 2018-03-08 14:11 | Emergency (ER) | payer MEDICARE, MEDICAID ==
[~2018-03-08 14:11] MED LIST: SUCCINYLCHOLINE CHLORIDE INJ 200 MG/10 ML VIAL ONE
--- NOTE | 2018-03-08 14:16 | ER Document Report ---
ED Neuro Symptoms/Deficit - General Stated Complaint: POSSIBLE STROKE Time Seen by Provider: 03/08/18 14:15 Notes: 67-year-old male to the emergency department chief complaint of acute stroke. Family members last known well 12 PM. Found patient shortly prior to arrival. Unable to speak. Complete paralysis. Only moving his left arm. Normally he is ambulatory, able to talk, able to eat. 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 Patient reportedly was normal. He had not complained of any chest pain, shortness of breath, weakness. Had no slurred speech. Had no other major issues. Patient is a heavy smoker and does have hypertension. Reportedly taking his medications. Not on any blood thinners according to family members. TRAVEL OUTSIDE OF THE [place] IN LAST 30 DAYS: No - HPI Patient complains to provider of: Difficulty standing, Difficulty walking, Facial Droop, Paralysis, Speech Impairment, Weakness Onset: Just prior to arrival Symptoms are: Constant Duration: Continues in ED Quality of pain: No pain Severity: Severe Loss of consciousness: No loss of consciousness Was STROKE ALERT Called: Yes Baseline Cognitive: Alert, oriented X 3 Baseline Gait: Uses a cane/walker Pre-existing weakness: No: Face, General, Hand, Lower extremity, Upper extremity - Related Data Allergies/Adverse Reactions: No Known Allergies Allergy (Verified 01/23/17 16:36) Past Medical History - General Information source: Relative, [facility], [facility] Records Cannot obtain history due to: Altered mental status - Social History Smoking Status: Current Every Day Smoker Frequency of alcohol use: None Drug Abuse: None Lives with: Family Family History: COPD, Hypertension - Past Medical History Cardiac Medical History: Reports: Hx Hypertension Pulmonary Medical History: Reports: Hx Bronchitis, Hx COPD Neurological Medical History: Reports: Hx Migraine Renal/ Medical History: Denies: Hx Peritoneal Dialysis Musculoskeletal Medical History: Reports Hx Arthritis - Immunizations Immunizations up to date: Yes Hx Diphtheria, Pertussis, Tetanus Vaccination: Yes Hx Pneumococcal Vaccination: 02/14/11 Review of Systems - Review of Systems -: Yes ROS unobtainable due to patient's medical condition Physical Exam - Vital signs Interpretation: Hypertensive, Tachypneic - General General appearance: Lethargic In distress: Severe - HEENT Head: Normocephalic Eyes: Other - Left eye is a prosthesis. Right eye normal. Conjunctiva: Normal Nerve palsy: Yes Visual reardon normal: No - Respiratory Respiratory status: Tachypnea Chest status: Nontender Breath sounds: Wheezing Chest palpation: Normal - Cardiovascular Rhythm: Regular Heart sounds: Normal auscultation Murmur: No - Abdominal Inspection: Normal Distension: No distension Bowel sounds: Normal Tenderness: Nontender Organomegaly: No organomegaly - Back Back: Normal, Nontender - Extremities General upper extremity: Other - The right upper extremity demonstrates flaccid paralysis. Does not respond to painful stimuli. The left upper extremity making purposeful movement and strength. General lower extremity: No: Dionne's sign - Neurological Neuro grossly intact: No Notes: The right upper extremity demonstrates flaccid paralysis as well as the right lower extremity and left lower extremity. There is hemineglect. There is a gaze to the left. Response to painful stimuli on the left however does not spot on the right side. NIH stroke scale consistent with 29 please see attached NIH and more comprehensive neuro exam on the NIH stroke worksheet as well as d ocuments. - Skin Skin Temperature: Warm Skin Moisture: Dry Skin Color: Normal Course - Re-evaluation Re-evalutation: 03/08/18 15:50 Obviously patient has large more likely MCA as well as TAMERA stroke. Head CT does not show any signs of bleed. Initial blood pressure was exclusion criteria for thrombolytics. Immediate attention was turned to getting blood pressure down with labetalol. Stroke protocol was ordered. Head CT negative bleed so immediately took to MRI based on the timeframe that we were working with as well as simultaneously consulting with neurology in [facility]. MRI shows acute stroke in a large vessel. After consultation with the neurologist, Dr. Hidalgo in [place] the decision was made to go ahead and give him thrombolytics and do a rapid transport for possible neuro intervention. Due to the fact the patient was aphasic the son and daughter were here and they were able to consent for thrombolytics. We gave them the risks and benefits of the medications. They were able to comprehend these instructions as well as the risks and benefits. Based on that we decided to go ahead and do thrombolytics. Prior to giving the thrombolytics patient was intubated as he was beginning to have some potential airway difficulty and some audible wheezing. There was concern for airway protection. Please see the intubation note. Patient was also given a Arriola catheter as well as an orogastric tube. After these tubes were secured then we decided to go ahead and push the thrombolytics according to our protocol. Patient is currently being sedated with propofol as well as a single dose of 7 mg of vecuronium. Patient remains in critical condition at this time. Anticipate rapid transfer.. 03/08/18 15:54 Of note, patient's cardiac troponin has come back elevated. Thrombolytics are going so potentially if he is having acute ischemic episode with his heart this would be beneficial as well. Information has been communicated with the transfer team. Laboratory 03/08/18 03/08/18 03/08/18 14:25 14:39 14:39 WBC 4.8 RBC 4.59 Hgb 13.9 Hct 40.6 MCV 88 MCH 30.3 MCHC 34.3 RDW 15.4 H Plt Count 154 Seg Neutrophils % 79.0 H Lymphocytes % 11.5 L Monocytes % 8.9 Eosinophils % 0.1 Basophils % 0.5 Absolute Neutrophils 3.8 Absolute Lymphocytes 0.6 Absolute Monocytes 0.4 Absolute Eosinophils 0.0 Absolute Basophils 0.0 PT 16.1 H INR 1.23 APTT 48.6 H Sodium Potassium Chloride Carbon Dioxide Anion Gap BUN Creatinine Est GFR ( Amer) Est GFR (Non-Af Amer) Glucose POC Glucose 128 H Calcium Total Bilirubin Direct Bilirubin Neonat Total Bilirubin Neonat Direct Bilirubin Neonat Indirect Bili AST ALT Alkaline Phosphatase Creatine Kinase CK-MB (CK-2) Troponin I Total Protein Albumin 03/08/18 03/08/18 14:39 14:39 WBC RBC Hgb Hct MCV MCH MCHC RDW Plt Count Seg Neutrophils % Lymphocytes % Monocytes % Eosinophils % Basophils % Absolute Neutrophils Absolute Lymphocytes Absolute Monocytes Absolute Eosinophils Absolute Basophils PT INR APTT Sodium 142.2 Potassium 3.5 L Chloride 107 Carbon Dioxide 25 Anion Gap 10 BUN 12 Creatinine 1.59 H Est GFR ( Amer) 53 L Est GFR (Non-Af Amer) 44 L Glucose 111 H POC Glucose Calcium 9.5 Total Bilirubin 1.6 H Direct Bilirubin 0.4 Neonat Total Bilirubin Not Reportable Neonat Direct Bilirubin Not Reportable Neonat Indirect Bili Not Reportable AST 18 ALT 14 L Alkaline Phosphatase 67 Creatine Kinase 585 H CK-MB (CK-2) 2.22 Troponin I 0.112 Total Protein 7.4 Albumin 4.3 Chest X-Ray 03/08/18 14:16 IMPRESSION: CARDIOMEGALY. MILD VASCULAR PROMINENCE. Head CT 03/08/18 14:16 IMPRESSION: White matter disease. No definite acute intracranial hemorrhage or large territory ischemic change EVIDENCE OF ACUTE STROKE: NO. Head MRI 03/08/18 14:30 IMPRESSION: Acute ischemic change left parasagittal frontal lobe and left precentral gyrus. No acute superimposed hemorrhage. EVIDENCE OF ACUTE STROKE: Yes. 03/08/18 15:57 - Laboratory Result Diagrams: 03/08/18 14:39 03/08/18 14:39 - EKG Interpretation by Sd EKG shows normal: Sinus rhythm. abnormal: ST-T Waves - ST depression ant/lat leads [place]/QRS: Left axis deviation Voltage: Consistant with LVH Procedures - Intubation Orotracheal Airway evaluation: Normal anatomy Mallampati Classification: Class 2 Medications: Etomidate, Succinylcholine, Vecuronium Intubation method: Orotracheal Blade type: Willy Blade size: 3 Equipment used: Glidescope ETT size: 7.5 Breath Sounds after Intubation: Equal End tidal CO2 confirmed: Yes Ventilator settings: SIMV Post Intubation Xray: Yes Intubation Complications: No complications Critical Care Note - Critical Care Note Total time excluding time spent on procedures (mins): 120 Comments: Direct bedside assessment, consultation with specialist, coordination of transfer care, obtaining data from family members. Discharge - Discharge Clinical Impression: Acute ischemic left MCA stroke Condition: Poor Disposition: [facility]
--- NOTE | 2018-03-08 14:34 | ER Document Report ---
ED NIH Stroke Scale - NIH Stroke Scale When completed:: Before Alteplase *: 1. NIH scale should be completed with appropriate accompanying assessment tools. *: 2. The NIH should reflect what the patient is capable of doing and should not be coached by the clinician. 1a. Level of Consciousness: 0=Alert;keenly responsive -: 1=Drowsy -: 2=Obtunded -: 3=Coma/unresponsive or reflex to noxious stimuli. 1a. Responses: 1 1b. Orientation Questions: a. What month is it? -: b. How old are you? -: 0=Answers both questions correctly. -: 1=Answers one question correctly or patient is intubated or has orotracheal trauma. -: 2=Answers neither question correctly. 1b. Responses: 2 1c. Response to commands: a. Open and close eyes? -: b. [employer] Trader and release hand? -: Credit is given despite weakness. Demonstration of task is permitted. Substitute command if hands cannot be used. -: 0=Performs both tasks correctly -: 1=Performs one task correctly -: 2=Performs neither task correctly 1c. Responses: 1 2. Gaze: Establish eye contact and instruct patient to "Follow my finger" -: 0=Normal -: 1=Partial gaze palsy. Gaze is abnormal in one or both eyes, but where forced deviation or total gaze paresis is not present. -: 2=Forced deviation or total gaze paresis. 2. Responses: 1 3. Visual Pedro: Sees fingers in all four quadrants. -: 0=No visual loss. -: 1=Partial hemianopsia. -: 2=Complete hemianopsia. -: 3=Bilateral hemianopsia (including Cortical blindness) 3. Responses: 1 4. Facial Movement: Instruct patient to: -: a. Show me your teeth -: b. Raise your eyebrows -: c. Close your eyes -: d. Smile -: 0=Normal symmetrical movement -: 1=Minor paralysis (flattened nasolabial fold, asymmetry on smiling). -: 2=Partial paralysis (total or near total paralysis of lower face). -: 3=Complete paralysis of upper and lower face 4. Responses: 1 5. Motor functions (left arm): Alternate sides and extend each arm with palms down (90 degrees if sitting or 45 degrees for supine). -: 0=No drift;limb holds for full 10 seconds. -: 1=Drift; limb holds but drifts down before full 10 seconds, but does not hit bed. -: 2=Some effort against gravity; limb cannot get to or maintain position. -: 3=No effort against gravity; limb falls. -: 4=No movement. -: UN=Amputation, joint fusion, explain in comments. 5. Responses (left arm): 0 5. Motor Functions (right arm): Alternate sides and extend each arm with palms down (90 degrees if sitting or 45 degrees for supine). -: 0=No drift;limb holds for full 10 seconds. -: 1=Drift; limb holds but drifts down before full 10 seconds, but does not hit bed. -: 2=Some effort against gravity; limb cannot get to or maintain position. -: 3=No effort against gravity; limb falls. -: 4=No movement. -: UN=Amputation, joint fusion, explain in comments. 5. Responses (right arm): 4 6. Motor Functions (left leg): With patient lying supine, alternate sides and extend each leg (30 degrees always while supine). -: 0=No drift, leg holds position for full 5 seconds -: 1=Drift; leg falls before full 5 seconds but does not hit bed. -: 2=Some effort against gravity, leg falls to bed but some effort against gravity. -: 3=No effort against gravity, leg falls to bed immediately. -: 4=No movement. -: UN=Amputation, joint fusion; explain in comments. 6. Responses (left leg): 4 6. Motor Functions (right leg): With patient lying supine, alternate sides and extend each leg (30 degrees always while supine). -: 0=No drift, leg holds position for full 5 seconds -: 1=Drift; leg falls before full 5 seconds but does not hit bed. -: 2=Some effort against gravity, leg falls to bed but some effort against gravity. -: 3=No effort against gravity, leg falls to bed immediately. -: 4=No movement. -: UN=Amputation, joint fusion; explain in comments. 6. Responses (right leg): 4 7. Limb Ataxia: With eyes open instruct patient to: -: a. "Touch your finger to your nose". -: b. "Touch your heel to your donohue" -: 0=Absent -: 1=Present in one limb. -: 2=Present in two limbs. -: UN=Amputation or joint fusion; explain in comments. 7. Responses: 2 7. If ataxia present choose as appropriate: Left leg, Right arm, Right leg 8. Sensory: Test sensation using pinprick or noxious stimuli. Test as many body parts as possible. -: 0=Normal;no sensory loss -: 1=Mile to moderate sensory loss (patient feels pin prick but is less sharp on affected side). -: 2=Severe or total sensory loss. 8. Responses: 1 9. Best Language: Instruct patient to: -: a. "Describe what you see in this picture." -: b. "Name the items in this picture." -: c. "Read these sentences." -: 0=No aphasia, normal -: 1=Mild to moderate aphasia. -: 2=Severe aphasia -: 3=Mute, global aphasia, no usable speech or auditory comprehension. 9. Responses: 3 10. Articulation, Dysarthia: Instruct patient to: -: "Read these words" or "Repeat these words" -: 0=Normal -: 1=Mild to moderate; patient may slur some words but can be understood without difficulty. -: 2=Severe; patients speech so slurred as to be unintelligible in the absence of dysphasia. -: UN=Intubated or other physical barrier, explain in comments. 10. Responses: 2 11. Extinction or inattention: 0=No abnormality -: 1= Visual, tactile, auditory, spatial, or personal inattention or extinction to bilateral simulation in one or the sensory modalities. -: 2=Profound jasson-inattention or jasson-inattention to more than one modality; does not recognize own hand. 11. Responses: 2 Total Score: 29
--- NOTE | 2018-03-08 14:41 | RADIOLOGY REPORT (SQ) ---
EXAM DESCRIPTION: CT HEAD WITHOUT COMPLETED DATE/TIME: 03/08/2018 2:24 pm REASON FOR STUDY: stroke symptoms flaccid right arm and leg COMPARISON: 03/07/2011, 06/14/2010 TECHNIQUE: Axial images acquired through the brain without intravenous contrast. Images reviewed wi th bone, brain and subdural windows. Additional sagittal and coronal reconstructions were generated. Images stored on PACS. All CT scanners at this facility use dose modulation, iterative reconstruction, and/or weight based d osing when appropriate to reduce radiation dose to as low as reasonably achievable (ALARA). [facility]: Dose Right [facility]: CareDose [facility]: Dose Right [facility]: Teradose 4D [facility]: Rayn RADIATION DOSE: 53 mGy. LIMITATIONS: None. FINDINGS: VENTRICLES: Normal size and contour. CEREBRUM: No definite CT evidence of large territory acute ischemic change, acute intracranial hemorr km, mass effect, or midline shift. 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 CEREBELLUM: No masses. No hemorrhage. No alteration of density. No evidence for acute infarction. EXTRAAXIAL SPACES: No fluid collections. No masses. ORBITS AND GLOBE: Left globe surgically absent with prosthesis present. CALVARIUM: No fracture. PARANASAL SINUSES: No fluid or mucosal thickening. SOFT TISSUES: No mass or hematoma. OTHER: Results discussed with Dr. Mart 1430 hours 03/08/2018 IMPRESSION: White matter disease. No definite acute intracranial hemorrhage or large territory isch emic change EVIDENCE OF ACUTE STROKE: NO. COMMENT: Pertinent findings on the imaging study reported as a CRITICAL RESULT to THELMA MART DO at14:30 on 03/08/2018. Category of Critical Result: CT code stroke Quality ID # [id number]: Final reports with documentation of one or more dose reduction techniques (e.g., Au tomated exposure control, adjustment of the mA and/or kV according to patient size, use of iterative reconstruction technique) TECHNICAL DOCUMENTATION: JOB ID: [id number] [employer]- All Rights Reserved Reading location - IP/workstation name: [email or web address]
--- NOTE | 2018-03-08 14:50 | RADIOLOGY REPORT (SQ) ---
EXAM DESCRIPTION: CHEST SINGLE VIEW COMPLETED DATE/TIME: 03/08/2018 2:42 pm REASON FOR STUDY: stroke symptoms COMPARISON: 01/23/2017. EXAM PARAMETERS: NUMBER OF VIEWS: One view. TECHNIQUE: Single frontal radiographic view of the chest acquired. RADIATION DOSE: NA LIMITATIONS: None. FINDINGS: LUNGS AND PLEURA: No opacities, masses or pneumothorax. No pleural effusion. MEDIASTINUM AND HILAR STRUCTURES: No masses. Contour normal. HEART AND VASCULAR STRUCTURES: Cardiomegaly. Mild vascular prominence. BONES: No acute findings. HARDWARE: None in the chest. OTHER: No other significant finding. IMPRESSION: CARDIOMEGALY. MILD VASCULAR PROMINENCE. TECHNICAL DOCUMENTATION: JOB ID: [id number] [employer]- All Rights Reserved Reading location - IP/workstation name: [email or web address]
[2018-03-08 14:57] LABS: ABSOLUTE LYMPHOCYTES (AUTO) 0.6 10^3/uL (0.5-4.7); ABSOLUTE MONOCYTES (AUTO) 0.4 10^3/uL (0.1-1.4); ABSOLUTE NEUT (AUTO) 3.8 10^3/uL (1.7-8.2); BASOPHILS % (AUTO) 0.5 % (0-2); EOSINOPHILS % (AUTO) 0.1 % (0-6); HEMATOCRIT 40.6 % (37.9-51.0); HEMOGLOBIN 13.9 g/dL (13.5-17.0); LYMPHOCYTES % (AUTO) 11.5 % (13-45); MEAN CORPUSCULAR HEMOGLOBIN 30.3 pg (27.0-33.4); MEAN CORPUSCULAR HGB CONC 34.3 g/dL (32.0-36.0); MEAN CORPUSCULAR VOLUME 88 fl (80-97); MONOCYTES % (AUTO) 8.9 % (3-13); PLATELET COUNT 154 10^3/uL (150-450); RED BLOOD COUNT 4.59 10^6/uL (4.35-5.55); RED CELL DISTRIBUTION WIDTH 15.4 % (11.5-14.0); TOTAL CELLS COUNTED % (AUTO) 100 %; WHITE BLOOD COUNT 4.8 10^3/uL (4.0-10.5)
[2018-03-08 15:05] LABS: INTERNATIONAL RATION (INR) 1.23
[2018-03-08 15:06] LABS: PARTIAL THROMBOPLASTIN TIME 48.6 SEC (23.5-35.8)
[2018-03-08 15:07] LABS: PROTHROMBIN TIME 16.1 SEC (11.4-15.4)
[2018-03-08] MEDS ORDERED: ALTEPLASE INJ 100 MG VIAL ONE (15:07)
[2018-03-08] MEDS ORDERED: ALTEPLASE INJ 100 MG VIAL IV ONE (15:13)
[2018-03-08 15:15] LABS: ALANINE AMINOTRANSFERASE 14 U/L (21-72); ALBUMIN 4.3 g/dL (3.5-5.0); ALKALINE PHOSPHATASE 67 U/L (38-126); ANION GAP 10 (5-19); ASPARTATE AMINO TRANSFERASE 18 U/L (17-59); BILIRUBIN,DIRECT 0.4 mg/dL (0.0-0.4); BILIRUBIN,TOTAL 1.6 mg/dL (0.2-1.3); BLOOD UREA NITROGEN 12 mg/dL (7-20); CALCIUM 9.5 mg/dL (8.4-10.2); CARBON DIOXIDE 25 mmol/L (22-30); CHLORIDE 107 mmol/L (98-107); CREATINE KINASE 585 U/L (55-170); GLUCOSE 111 mg/dL (75-110); POTASSIUM 3.5 mmol/L (3.6-5.0); SODIUM 142.2 mmol/L (137-145); TOTAL PROTEIN 7.4 g/dL (6.3-8.2)
[2018-03-08] MEDS ORDERED: ETOMIDATE INJ/PF 20 MG/10 ML SDV IV ONE (15:17)
[2018-03-08] MEDS ORDERED: PROPOFOL 1,000 MG/100 ML INFUS..BTL IV ONE (15:18)
[2018-03-08] MEDS ORDERED: LABETALOL HCL INJ 20 MG/4 ML DISP.SYRIN IV ONE (15:19)
[2018-03-08 15:30] LABS: CREATINE KINASE MB 2.22 ng/mL (<4.55)
--- NOTE | 2018-03-08 15:31 | RADIOLOGY REPORT (SQ) ---
EXAM DESCRIPTION: MRI HEAD WITHOUT COMPLETED DATE/TIME: 03/08/2018 3:07 pm REASON FOR STUDY: acute stroke COMPARISON: CT brain 03/08/2018 TECHNIQUE: Multiplanar imaging includes non-contrasted T1, T2, FLAIR, and diffusion with ADC map seq uences. Images stored on PACS. LIMITATIONS: None. FINDINGS: ANATOMY: No developmental anomalies. Normal vascular flow voids. Pituitary fossa normal. CSF SPACES: Normal in size and contour. No hemorrhage. CEREBRUM: Diffusion-weighted images are positive for acute ischemic change in the left parasagittal f rontal cortex and subcortical white matter in the anterior cerebral artery distribution. There is al so acute ischemic change in the left precentral gyrus in the MCA distribution. Punctate focus of lef t parietal acute cortical ischemic change. No acute hemorrhage. Mild mass effect with sulcal efface ment, no midline shift. These findings were called to the emergency room as a critical result, 1450 hours, 03/08/[address] Mart. FLAIR and T2 images demonstrate moderate chronic small vessel ischemic change in the bifrontal and bi parietal white matter, with old lacunar infarcts in the left basal ganglia and left frontal deep huseyin ventricular white matter POSTERIOR FOSSA: No signal alteration. No hemorrhage. No edema, masses or mass effect. Internal marianne tory canals, cerebello-pontine angles, mastoids normal. DIFFUSION IMAGING: Positive for acute ischemic change in the left parasagittal frontal region and lef t precentral gyrus region ORBITS: Left globe prosthesis. PARANASAL SINUSES: No fluid levels. Mucosa normal. OTHER: Gradient echo T2 weighted images demonstrate minimal spotty hemosiderin deposition in the righ t cerebellar hemisphere, mid catie, and bilateral basal ganglia. IMPRESSION: Acute ischemic change left parasagittal frontal lobe and left precentral gyrus. No acut e superimposed hemorrhage. EVIDENCE OF ACUTE STROKE: Yes. COMMENT: Pertinent findings on the imaging study reported as a CRITICAL RESULT to THELMA MART DO at14:50 hours on 03/08/2018. Category of Critical Result: Acute ischemic change, positive diffusion TECHNICAL DOCUMENTATION: JOB ID: [id number]- All Rights Reserved Reading location - IP/workstation name: [email or web address]
[2018-03-08 15:39] LABS: TROPONIN I 0.112 ng/mL
[2018-03-08] MEDS ORDERED: VECURONIUM BROMIDE INJ 10 MG VIAL IV ONE (15:39)
[2018-03-08] MEDS ORDERED: NORMAL SALINE 500 ML IV ONE (16:02)
--- NOTE | 2018-03-08 16:39 | RADIOLOGY REPORT (SQ) ---
EXAM DESCRIPTION: CHEST SINGLE VIEW COMPLETED DATE/TIME: 03/08/2018 4:20 pm REASON FOR STUDY: Post intubation/IG Tube COMPARISON: 03/08/2018, 01/23/2017, 06/27/2016 chest films EXAM PARAMETERS: NUMBER OF VIEWS: One view. TECHNIQUE: Single frontal radiographic view of the chest acquired. RADIATION DOSE: NA LIMITATIONS: None. FINDINGS: LUNGS AND PLEURA: No opacities, masses or pneumothorax. No pleural effusion. MEDIASTINUM AND HILAR STRUCTURES: Moderate size retrocardiac hiatal hernias HEART AND VASCULAR STRUCTURES: Stable mild cardiomegaly. Normal vasculature. BONES: No acute findings. HARDWARE: ETT tube and NG tubes in good position OTHER: No other significant finding. IMPRESSION: Stable appearance of the chest TECHNICAL DOCUMENTATION: JOB ID: [id number]- All Rights Reserved Reading location - IP/workstation name: [email or web address]
[2018-03-08 16:52] VITALS: BP 108/81
--- NOTE | 2018-03-09 08:08 | EKG REPORT ---
SEVERITY:- ABNORMAL ECG - SINUS TACHYCARDIA VENTRICULAR BIGEMINY PROBABLE LEFT ATRIAL ABNORMALITY LVH WITH SECONDARY REPOLARIZATION ABNORMALITY ST DEPRESSION, CONSIDER ISCHEMIA, ANT-LAT LDS BORDERLINE PROLONGED QT INTERVAL : Confirmed by: Brittany Franco MD 09-Mar-2018 08:07:36
== END 2018-03-08 16:40 | disposition short-term general hospital (02) ==
LOC: ER 14:11
DX: I63.89 Other cerebral infarction (principal); R53.83 Other fatigue; R26.2 Difficulty in walking, not elsewhere classified; R47.9 Unspecified speech disturbances; R29.810 Facial weakness; R53.1 Weakness; F17.200 Nicotine dependence, unspecified, uncomplicated; J44.9 Chronic obstructive pulmonary disease, unspecified; I11.9 Hypertensive heart disease without heart failure
CPT/HCPCS: 93005; 99291; 99292; 51702; 96374; 96375; 36415; 82553; 82962; 82550; 85025; 85610; 85730; 80053; 84484; 70551; 71045; 70450; 93010; 31500; J2704; J3490 ×3; J2997; J0330; 94660